=== PATIENT | female | born 1995 ===

== ENCOUNTER 2017-03-30 13:13 | Inpatient (IN) ==
[2017-03-30] MEDS ORDERED: LACTATED RINGERS 1,000 ML IV ONE (14:03)
[2017-03-30] MEDS ORDERED: ONDANSETRON 4 MG/2 ML VIAL IV PRN ×2 (14:03→18:19)
[2017-03-30] MEDS ORDERED: OXYTOCIN 10 UNIT/ML VIAL IM ONE (14:06)
[2017-03-30] MEDS ORDERED: FAMOTIDINE 20 MG/2 ML VIAL IV ONE (14:07)
[2017-03-30] MEDS ORDERED: ceFAZolin 2,000 MG in PREMIX 1 EACH IV ONE (14:07)
[2017-03-30] MEDS ORDERED: CITRIC ACID/SODIUM CITRATE 30 ML UDCUP PO ONE (14:07)
[2017-03-30] MEDS ORDERED: OXYTOCIN/LR 30 UNIT/1,000 ML BAG IV ONE (14:23)
[2017-03-30 14:34] LABS: Basophils % 0.2 % (0.0-0.8); Eosinophils % 0.2 % (0.00-10.9); Hematocrit 38.2 VOL% (35.7-47.0); Hemoglobin 12.8 GM/DL (12.0-16.0); Immature Granulocytes % 0.7 %; Immature Granulocytes Absolute 0.07 #; Lymphocytes # 1.8 10*3/uL (1.4-4.0); Lymphocytes % 18.5 % (21.3-54.2); Mean Corpuscular HGB Conc 33.5 GM/DL (32-36); Mean Corpuscular Hemoglobin 28 PG (27-34); Mean Corpuscular Volume 82.5 FL (87-102); Mean Platelet Volume 11.9 FL (9.6-12.0); Monocytes # 0.5 10*3/uL (0.11-0.8); Monocytes % 4.9 % (1.7-12.7); Neutrophils # 7.2 10*3/uL (1.4-7.4); Neutrophils % 75.5 % (38.7-73.9); Platelet Count 235 T/CUMM (130-400); Red Blood Count 4.63 MC/CUMM (3.8-5.5); Red Cell Distribution Width 14.5 % (9.3-17.3); White Blood Count 9.6 T/CUMM (4-12)
[2017-03-30 14:48] LABS: Apearance,Urine CLEAR (Clear); Bilirubin,Urine Negative (Negative); Blood, Urine Negative (Negative); Glucose,Urine (UA) >=500 mg/dL (Negative); Ketones,Urine 5 mg/dL (Negative); Mucus,Urine Occasional /LPF (Occasional); Nitrite,Urine Negative (Negative); Protein,Urine 100 MG/DL; RBC,Urine 1 /HPF (0-4); Squamous Epithelial Cell,Urine Occasional /HPF (0-10); Urine Color Yellow (Yellow); Urine Specific Gravity 1.022 (1.001-1.035); Urine Urobilinogen < 2.0 EU/DL (0.2-1.0); WBC,Urine 1 /HPF (0-6)
[2017-03-30 15:02] LABS: Alanine Aminotransferase 9 U/L (13-56); Albumin 2.2 G/DL (3.4-5.0); Alkaline Phosphatase 121 U/L (45-117); Aspartate Amino Transferase 10 U/L (0-37); Bilirubin,Total < 0.39 MG/DL (0.2-1.0); Blood Urea Nitrogen 11 MG/DL (7-18); Calcium 8.2 MG/DL (8.5-10.1); Glucose 198 MG/DL (74-106); Potassium 4.1 MMOL/L (3.5-5.1); Sodium 136 MMOL/L (136-145); Total Protein 6.2 G/DL (6.4-8.3)
[2017-03-30] MEDS ORDERED: fentaNYL 100 MCG/2 ML VIAL ONE (16:25)
[2017-03-30] MEDS ORDERED: MORPHINE 10 MG/10 ML VIAL ONE (16:26)
[2017-03-30] MEDS ORDERED: ONDANSETRON 4 MG/2 ML VIAL ONE (16:29)
[2017-03-30 16:32] LABS: Cord Arterial Blood HCO3 27.4 MMOL/L
[2017-03-30 16:38] LABS: Cord Venous Blood HCO3 24.3 MMOL/L; Cord Venous Blood PO2 27.3 MMHG
[2017-03-30] MEDS ORDERED: DEXTROSE 50% 25 GM/50 ML VIAL IV PRN (18:19)
[2017-03-30] MEDS ORDERED: RHO(D) IMMUNE GLOBULIN 300 MCG SYRINGE IM ONE (18:19)
[2017-03-30] MEDS ORDERED: ACETAMINOPHEN 325 MG TABLET PO PRN (18:19)
[2017-03-30] MEDS ORDERED: LACTATED RINGERS 1,000 ML IV SCH (18:19)
[2017-03-30] MEDS ORDERED: OXYTOCIN/LR 20 UNIT/1,000 ML BAG IV ONE (18:19)
[2017-03-30] MEDS ORDERED: GLUCAGON 1 MG VIAL IM PRN (18:19)
[2017-03-30] MEDS: metFORMIN 500 MG TABLET PO SCH (18:45)
[2017-03-30] MEDS: valACYclovir 500 MG TABLET PO SCH (21:10)
[2017-03-30] MEDS: DOCUSATE SODIUM 100 MG CAPSULE PO SCH (21:18)
[2017-03-31 04:44] LABS: Hematocrit 34.9 VOL% (35.7-47.0); Hemoglobin 11.3 GM/DL (12.0-16.0)
[2017-03-31 05:29] LABS: Basophils % 0.4 % (0.0-0.8); Eosinophils % 0.4 % (0.00-10.9); Hematocrit 33.3 VOL% (35.7-47.0); Hemoglobin 11.4 GM/DL (12.0-16.0); Immature Granulocytes % 0.5 %; Immature Granulocytes Absolute 0.05 #; Lymphocytes # 1.8 10*3/uL (1.4-4.0); Lymphocytes % 18.3 % (21.3-54.2); Mean Corpuscular HGB Conc 34.2 GM/DL (32-36); Mean Corpuscular Hemoglobin 28 PG (27-34); Mean Corpuscular Volume 81.4 FL (87-102); Mean Platelet Volume 11.7 FL (9.6-12.0); Monocytes # 0.8 10*3/uL (0.11-0.8); Monocytes % 7.9 % (1.7-12.7); Neutrophils # 7.3 10*3/uL (1.4-7.4); Neutrophils % 72.5 % (38.7-73.9); Platelet Count 192 T/CUMM (130-400); Red Blood Count 4.09 MC/CUMM (3.8-5.5); Red Cell Distribution Width 14.6 % (9.3-17.3)
[2017-03-31] MEDS: DOCUSATE SODIUM 100 MG CAPSULE PO SCH ×2 (08:18→22:11)
[2017-03-31] MEDS: valACYclovir 500 MG TABLET PO SCH ×2 (08:18→22:10)
[2017-03-31] MEDS: MULTIVITAMIN (PRENATAL) TABLET PO SCH (08:18)
[2017-03-31] MEDS: SIMETHICONE CHEW 80 MG TABLET PO PRN (08:19)
[2017-03-31] MEDS: metFORMIN 500 MG TABLET PO SCH ×2 (08:19→16:59)
[2017-03-31] MEDS ORDERED: ceFAZolin 1,000 MG in SYRINGE 1 EACH IV SCH (08:30)
[2017-03-31] MEDS: IBUPROFEN 800 MG TABLET PO PRN (15:32)
[2017-03-31] MEDS: MAGNESIUM HYDROXIDE SUSP 30 ML UDCUP PO PRN (22:10)
[2017-04-01] MEDS: IBUPROFEN 800 MG TABLET PO PRN ×2 (01:12→20:02)
[2017-04-01] MEDS: MAGNESIUM HYDROXIDE SUSP 30 ML UDCUP PO PRN ×2 (08:52→20:03)
[2017-04-01] MEDS: DOCUSATE SODIUM 100 MG CAPSULE PO SCH ×2 (08:55→20:03)
[2017-04-01] MEDS: MULTIVITAMIN (PRENATAL) TABLET PO SCH (08:55)
[2017-04-01] MEDS: valACYclovir 500 MG TABLET PO SCH ×2 (08:55→20:03)
[2017-04-01] MEDS: metFORMIN 500 MG TABLET PO SCH ×2 (08:55→17:39)
[2017-04-01] MEDS ORDERED: INFLUENZA VIRUS VACCINE 0.5 ML SYRINGE IM ONE (09:00)
[2017-04-01] MEDS: SIMETHICONE CHEW 80 MG TABLET PO PRN (20:03)
[2017-04-02] MEDS: DOCUSATE SODIUM 100 MG CAPSULE PO SCH ×2 (09:01→20:40)
[2017-04-02] MEDS: metFORMIN 500 MG TABLET PO SCH ×2 (09:01→17:24)
[2017-04-02] MEDS: MULTIVITAMIN (PRENATAL) TABLET PO SCH (09:03)
[2017-04-02] MEDS: valACYclovir 500 MG TABLET PO SCH ×2 (09:04→20:40)
[2017-04-02] MEDS: IBUPROFEN 800 MG TABLET PO PRN ×2 (11:09→22:05)
[2017-04-03 08:26] VITALS: BP 142/80
[2017-04-03] MEDS: DOCUSATE SODIUM 100 MG CAPSULE PO SCH (08:59)
[2017-04-03] MEDS: MULTIVITAMIN (PRENATAL) TABLET PO SCH (08:59)
[2017-04-03] MEDS: valACYclovir 500 MG TABLET PO SCH (08:59)
[2017-04-03] MEDS: metFORMIN 500 MG TABLET PO SCH (09:00)
[2017-04-03] MEDS: IBUPROFEN 800 MG TABLET PO PRN (10:22)
== END 2017-04-03 13:05 | disposition home or self-care (01) | DRG 540 ==
LOC: N.LDOUT 13:13 → N.LD 13:14 → N.OB 18:16
PROVIDERS: ADMIT Obstetrics & Gynecology; ATTEND Obstetrics & Gynecology
PROC: LDCSECT (ICD-10-PCS; 2017-03-30 14:15)

== ENCOUNTER 2018-06-11 14:24 | Observation (INO) ==
[2018-06-11] MEDS ORDERED: INSULIN NPH 100 UNIT/ML SUBCUT ONE (14:53)
[2018-06-11] MEDS ORDERED: INSULIN REGULAR 100 UNIT/ML SUBCUT ONE ×2 (14:53→20:18)
[2018-06-11] MEDS ORDERED: GLUCAGON 1 MG VIAL IM PRN (14:54)
[2018-06-11] MEDS ORDERED: DEXTROSE 50% 25 GM/50 ML VIAL IV PRN (14:54)
[2018-06-11 15:18] LABS: Eosinophils % 0.2 % (0.00-10.9); Hematocrit 36.3 VOL% (35.7-47.0); Hemoglobin 11.6 GM/DL (12.0-16.0); Immature Granulocytes % 0.5 %; Immature Granulocytes Absolute 0.04 #; Lymphocytes # 1.1 10*3/uL (1.4-4.0); Lymphocytes % 12.5 % (21.3-54.2); Mean Corpuscular Volume 77.4 FL (87-102); Mean Platelet Volume 11.3 FL (9.6-12.0); Monocytes % 4.4 % (1.7-12.7); Neutrophils % 82.4 % (38.7-73.9); Platelet Count 259 T/CUMM (130-400); Red Blood Count 4.69 MC/CUMM (3.8-5.5); Red Cell Distribution Width 14.1 % (9.3-17.3); White Blood Count 8.5 T/CUMM (4-12)
[2018-06-11 15:39] LABS: Alanine Aminotransferase 34 U/L (13-56); Albumin 2.3 G/DL (3.4-5.0); Alkaline Phosphatase 132 U/L (45-117); Aspartate Amino Transferase 94 U/L (0-37); Bilirubin,Total < 0.39 MG/DL (0.2-1.0); Blood Urea Nitrogen 8 MG/DL (7-18); Calcium 8.5 MG/DL (8.5-10.1); Glucose 315 MG/DL (74-106); Osmolality,Calculated 269.8 MOS/KG (273-304); Total Protein 7.5 G/DL (6.4-8.3)
[2018-06-11] MEDS: SODIUM CHLORIDE 0.9% 1,000 ML IV SCH (20:16)
[2018-06-11] MEDS: INSULIN NPH 100 UNIT/ML SUBCUT SCH (20:16)
[2018-06-11] MEDS: INSULIN REGULAR 100 UNIT/ML SUBCUT SCH ×2 (20:28→22:39)
[2018-06-11] MEDS: valACYclovir 500 MG TABLET PO SCH (21:17)
[2018-06-12] MEDS: INSULIN REGULAR 100 UNIT/ML SUBCUT SCH ×7 (00:45→20:15)
[2018-06-12] MEDS: SODIUM CHLORIDE 0.9% 1,000 ML IV SCH (04:21)
[2018-06-12] MEDS: INSULIN NPH 100 UNIT/ML SUBCUT SCH ×2 (08:08→16:37)
[2018-06-12] MEDS: MULTIVITAMIN (PRENATAL) TABLET PO SCH (08:56)
[2018-06-12] MEDS: DOCUSATE SODIUM 100 MG CAPSULE PO PRN ×2 (08:56→20:14)
[2018-06-12] MEDS: valACYclovir 500 MG TABLET PO SCH ×2 (08:57→20:14)
[2018-06-13] MEDS: INSULIN REGULAR 100 UNIT/ML SUBCUT SCH ×6 (00:14→23:47)
[2018-06-13] MEDS: MULTIVITAMIN (PRENATAL) TABLET PO SCH (08:07)
[2018-06-13] MEDS: INSULIN NPH 100 UNIT/ML SUBCUT SCH ×2 (08:07→16:55)
[2018-06-13] MEDS: valACYclovir 500 MG TABLET PO SCH ×2 (08:07→20:21)
[2018-06-13] MEDS: DOCUSATE SODIUM 100 MG CAPSULE PO PRN (08:10)
[2018-06-14] MEDS: INSULIN REGULAR 100 UNIT/ML SUBCUT SCH ×5 (06:12→18:48)
[2018-06-14] MEDS ORDERED: INSULIN REGULAR 100 UNIT/ML SUBCUT SCH (07:30)
[2018-06-14] MEDS ORDERED: INSULIN NPH 100 UNIT/ML SUBCUT SCH (07:30)
[2018-06-14] MEDS ORDERED: INSULIN REGULAR 100 UNIT/ML SUBCUT ONE (09:30)
[2018-06-14] MEDS ORDERED: INSULIN NPH 100 UNIT/ML SUBCUT STA (09:30)
[2018-06-14] MEDS: valACYclovir 500 MG TABLET PO SCH ×2 (09:36→21:22)
[2018-06-14] MEDS: MULTIVITAMIN (PRENATAL) TABLET PO SCH (09:36)
[2018-06-14] MEDS: DOCUSATE SODIUM 100 MG CAPSULE PO PRN (09:36)
[2018-06-14] MEDS: INSULIN NPH 100 UNIT/ML SUBCUT SCH (17:46)
[2018-06-15] MEDS: INSULIN REGULAR 100 UNIT/ML SUBCUT SCH ×4 (06:08→12:10)
[2018-06-15 07:24] VITALS: BP 108/60
[2018-06-15] MEDS: INSULIN NPH 100 UNIT/ML SUBCUT SCH (08:10)
[2018-06-15] MEDS: valACYclovir 500 MG TABLET PO SCH (10:25)
[2018-06-15] MEDS: MULTIVITAMIN (PRENATAL) TABLET PO SCH (10:25)
== END 2018-06-15 13:24 | disposition home or self-care (01) ==
LOC: N.OB 14:24 → N.LDOUT 14:24 → N.LD 14:31 → N.OB 06-12 00:48 → UNDODEPREF 06-21 13:53
PROVIDERS: ADMIT Obstetrics & Gynecology; ATTEND Obstetrics & Gynecology

== ENCOUNTER 2018-07-20 23:14 | Inpatient (IN) ==
[2018-07-21] MEDS ORDERED: ONDANSETRON 4 MG/2 ML VIAL IV PRN ×2 (00:01→02:06)
[2018-07-21] MEDS ORDERED: LACTATED RINGERS 500 ML IV PRN (00:01)
[2018-07-21] MEDS ORDERED: CITRIC ACID/SODIUM CITRATE 30 ML UDCUP PO ONE (00:05)
[2018-07-21] MEDS ORDERED: ceFAZolin 3,000 MG in SYRINGE 1 EACH IV ONE (00:08)
[2018-07-21] MEDS ORDERED: OXYTOCIN 10 UNIT/ML VIAL IM ONE (00:25)
[2018-07-21] MEDS ORDERED: LACTATED RINGERS 1,000 ML IV SCH ×2 (00:30→02:30)
[2018-07-21] MEDS ORDERED: FAMOTIDINE 20 MG/2 ML VIAL IV SCH (00:30)
[2018-07-21] MEDS ORDERED: FAMOTIDINE 20 MG/2 ML VIAL IV ONE (00:30)
[2018-07-21 00:37] LABS: Alanine Aminotransferase 13 U/L (13-56); Albumin 1.9 G/DL (3.4-5.0); Alkaline Phosphatase 143 U/L (45-117); Aspartate Amino Transferase 16 U/L (0-37); Bilirubin,Total < 0.39 MG/DL (0.2-1.0); Blood Urea Nitrogen 7 MG/DL (7-18); Calcium 9.1 MG/DL (8.5-10.1); Glucose 237 MG/DL (74-106); Total Protein 7.4 G/DL (6.4-8.3); Uric Acid 5.5 MG/DL (2.6-6.0)
[2018-07-21] MEDS ORDERED: INSULIN REGULAR 100 UNIT/ML SUBCUT ONE (00:47)
[2018-07-21] MEDS ORDERED: OXYTOCIN/LR 30 UNIT/1,000 ML BAG IV ONE (00:50)
[2018-07-21 00:58] LABS: Basophils % 0.1 % (0.0-0.8); Eosinophils % 0.4 % (0.00-10.9); Hematocrit 38.4 VOL% (35.7-47.0); Immature Granulocytes % 0.9 %; Immature Granulocytes Absolute 0.07 #; Lymphocytes # 1.9 10*3/uL (1.4-4.0); Lymphocytes % 24.1 % (21.3-54.2); Mean Corpuscular HGB Conc 31.3 GM/DL (32-36); Mean Platelet Volume 12.3 FL (9.6-12.0); Monocytes % 5.4 % (1.7-12.7); Neutrophils % 69.1 % (38.7-73.9); Platelet Count 241 T/CUMM (130-400); Red Blood Count 4.99 MC/CUMM (3.8-5.5); Red Cell Distribution Width 15.9 % (9.3-17.3); White Blood Count 7.8 T/CUMM (4-12)
[2018-07-21 01:05] LABS: Apearance,Urine CLEAR (Clear); Bacteria,Urine Occasional /HPF (Few); Bilirubin,Urine Negative (Negative); Blood, Urine Negative (Negative); Glucose,Urine (UA) >=500 mg/dL (Negative); Hyaline Casts,Urine 1 /LPF (0-3); Ketones,Urine Negative (Negative); Nitrite,Urine Negative (Negative); Protein,Urine 100 MG/DL; RBC,Urine 1 /HPF (0-4); Squamous Epithelial Cell,Urine Occasional /HPF (0-10); Urine Color Yellow (Yellow); Urine Specific Gravity 1.028 (1.001-1.035); Urine Urobilinogen < 2.0 EU/DL (0.2-1.0); WBC,Urine 1 /HPF (0-6)
[2018-07-21] MEDS ORDERED: MIDAZOLAM 2 MG/2 ML VIAL ONE (01:54)
[2018-07-21] MEDS ORDERED: fentaNYL 100 MCG/2 ML VIAL ONE (01:54)
[2018-07-21] MEDS ORDERED: PROPOFOL 200 MG/20 ML VIAL IV ONE (01:55)
[2018-07-21] MEDS ORDERED: SUCCINYLCHOLINE 200 MG/10 ML VIAL ONE (01:56)
[2018-07-21] MEDS ORDERED: SEVOFLURANE 1 UNIT/15 MINUTE INH ONE (01:56)
[2018-07-21] MEDS ORDERED: IBUPROFEN 800 MG TABLET PO PRN (02:06)
[2018-07-21] MEDS ORDERED: DEXTROSE 50% 25 GM/50 ML VIAL IV PRN ×2 (02:06→06:07)
[2018-07-21] MEDS ORDERED: SIMETHICONE CHEW 80 MG TABLET PO PRN (02:06)
[2018-07-21] MEDS ORDERED: GLUCAGON 1 MG VIAL IM PRN ×2 (02:06→06:07)
[2018-07-21] MEDS ORDERED: RHO(D) IMMUNE GLOBULIN 300 MCG SYRINGE IM ONE (02:06)
[2018-07-21] MEDS ORDERED: MAGNESIUM HYDROXIDE SUSP 30 ML UDCUP PO PRN (02:06)
[2018-07-21] MEDS ORDERED: ACETAMINOPHEN 325 MG TABLET PO PRN (02:06)
[2018-07-21] MEDS ORDERED: OXYTOCIN/LR 20 UNIT/1,000 ML BAG IV ONE (02:06)
[2018-07-21] MEDS ORDERED: MEPERIDINE 25 MG/1 ML VIAL IV ONE (02:12)
[2018-07-21] MEDS ORDERED: MEPERIDINE 25 MG/1 ML VIAL ONE ×2 (02:15→02:16)
[2018-07-21] MEDS ORDERED: MEPERIDINE 25 MG/1 ML VIAL IV PRN (07:48)
[2018-07-21] MEDS ORDERED: hydrALAZINE 20 MG/1 ML VIAL IV ONE ×2 (08:10→08:25)
[2018-07-21 08:49] LABS: Basophils % 0.1 % (0.0-0.8); Eosinophils % 0.1 % (0.00-10.9); Hematocrit 34.9 VOL% (35.7-47.0); Hemoglobin 10.9 GM/DL (12.0-16.0); Immature Granulocytes % 0.4 %; Immature Granulocytes Absolute 0.04 #; Lymphocytes # 2.2 10*3/uL (1.4-4.0); Lymphocytes % 20.1 % (21.3-54.2); Mean Corpuscular HGB Conc 31.2 GM/DL (32-36); Mean Corpuscular Volume 77.4 FL (87-102); Mean Platelet Volume 11.9 FL (9.6-12.0); Monocytes % 5.4 % (1.7-12.7); Neutrophils % 73.9 % (38.7-73.9); Platelet Count 227 T/CUMM (130-400); Red Blood Count 4.51 MC/CUMM (3.8-5.5); Red Cell Distribution Width 15.8 % (9.3-17.3); White Blood Count 10.9 T/CUMM (4-12)
[2018-07-21] MEDS: ceFAZolin 1,000 MG in SYRINGE 1 EACH IV SCH ×2 (09:35→17:01)
[2018-07-21] MEDS ORDERED: LORazepam 1 MG TABLET PO PRN (09:59)
[2018-07-21] MEDS: DOCUSATE SODIUM 100 MG CAPSULE PO SCH ×2 (10:00→21:10)
[2018-07-21] MEDS: MULTIVITAMIN (PRENATAL) TABLET PO SCH (10:00)
[2018-07-21] MEDS: SERTRALINE 50 MG TABLET PO SCH (11:21)
[2018-07-21] MEDS: INSULIN REGULAR 100 UNIT/ML SUBCUT SCH ×2 (11:52→17:01)
[2018-07-22] MEDS: INSULIN REGULAR 100 UNIT/ML SUBCUT SCH ×2 (00:19→06:10)
[2018-07-22 07:28] VITALS: BP 151/89
[2018-07-22] MEDS ORDERED: METOCLOPRAMIDE 10 MG TABLET ONE (07:59)
[2018-07-22] MEDS: DOCUSATE SODIUM 100 MG CAPSULE PO SCH (08:03)
[2018-07-22] MEDS: MULTIVITAMIN (PRENATAL) TABLET PO SCH (08:03)
[2018-07-22] MEDS: SERTRALINE 50 MG TABLET PO SCH (08:03)
[2018-07-22] MEDS ORDERED: METOCLOPRAMIDE 10 MG TABLET PO SCH (09:00)
== END 2018-07-22 13:20 | disposition home or self-care (01) | DRG 540 ==
LOC: N.LDOUT 23:14 → N.LD 23:16 → N.OB 07-21 00:02
PROVIDERS: ADMIT Obstetrics & Gynecology; ATTEND Obstetrics & Gynecology
PROC: LDCSECT (ICD-10-PCS; 2018-07-21 00:45)

== ENCOUNTER 2020-11-13 10:11 | Inpatient (IN) ==
[2020-11-13] MEDS ORDERED: CITRIC ACID/SODIUM CITRATE 30 ML UDCUP PO ONE (10:27)
[2020-11-13] MEDS ORDERED: ceFAZolin 2,000 MG/50 ML DUPLEX IV ONE (10:27)
[2020-11-13] MEDS ORDERED: FAMOTIDINE 20 MG/2 ML VIAL IV ONE (10:27)
[2020-11-13] MEDS: LACTATED RINGERS 1,000 ML IV SCH ×2 (10:46→15:08)
[2020-11-13 11:00] LABS: Basophils % 0.6 % (0.0-0.8); Eosinophils % 0.2 % (0.00-10.9); Hematocrit 38.5 VOL% (35.7-47.0); Hemoglobin 12.7 GM/DL (12.0-16.0); Immature Granulocytes % 0.2 %; Immature Granulocytes Absolute 0.01 #; Lymphocytes # 2.6 10*3/uL (1.4-4.0); Mean Corpuscular Volume 80.7 FL (87-102); Mean Platelet Volume 11.7 FL (9.6-12.0); Monocytes % 4.4 % (1.7-12.7); Neutrophils % 44.6 % (38.7-73.9); Platelet Count 184 T/CUMM (130-400); Red Blood Count 4.77 MC/CUMM (3.8-5.5); Red Cell Distribution Width 13.1 % (9.3-17.3); White Blood Count 5.2 T/CUMM (4-12)
[2020-11-13 11:32] LABS: Albumin 2.1 G/DL (3.4-5.0); Bilirubin,Total 0.6 MG/DL (0.20-1.00); Potassium 3.7 MMOL/L (3.5-5.1); Total Protein 7.1 G/DL (6.4-8.2)
[2020-11-13 12:08] LABS: Anisocytosis Slight; Band Neutrophils 3 % (0-10); Lymphocytes 52 % (20-55); Segmented Neutrophils 40 % (50-85); Total Cells Counted 100
[2020-11-13 12:09] LABS: Atypical Lymphocytes Few
[2020-11-13] MEDS ORDERED: OXYTOCIN 10 UNIT/ML VIAL IM ONE (13:00)
[2020-11-13] MEDS ORDERED: OXYTOCIN/LR 30 UNIT/1,000 ML BAG IV ONE (13:00)
[2020-11-13] MEDS ORDERED: BUPIVACAINE SPINAL 0.75% 2 ML AMP SPINAL ONE (13:15)
[2020-11-13] MEDS ORDERED: ONDANSETRON 4 MG/2 ML VIAL ONE (13:15)
[2020-11-13 14:04] LABS: Platelet Estimate Normal
[2020-11-13] MEDS ORDERED: miSOPROStoL 200 MCG TABLET ONE (14:10)
[2020-11-13] MEDS ORDERED: METHYLERGONOVINE 0.2 MG/1 ML AMP ONE (14:10)
[2020-11-13] MEDS ORDERED: ACETAMINOPHEN INJ 1,000 MG/100 ML VIAL IV ONE (16:15)
[2020-11-13] MEDS ORDERED: LACTATED RINGERS 1,000 ML IV ONE (16:15)
[2020-11-13] MEDS ORDERED: PHENYLEPHRINE 1 MG/10 ML SYRINGE IV ONE (16:15)
[2020-11-13] MEDS ORDERED: KETOROLAC 30 MG/1 ML VIAL ONE (16:17)
[2020-11-13 16:24] LABS: Cord Venous Blood HCO3 20.7 MMOL/L; Cord Venous Blood PCO2 71.8 MMHG; Cord Venous Blood PO2 < 17
[2020-11-13 16:26] LABS: Cord Arterial Blood HCO3 21.2 MMOL/L
[2020-11-13 16:43] LABS: Bilirubin,Urine Negative (Negative); Blood, Urine Negative (Negative); Glucose,Urine (UA) Negative (Negative); Hyaline Casts,Urine 2 /LPF (0-3); Ketones,Urine 80 mg/dL (Negative); Mucus,Urine Many /LPF (Occasional); Nitrite,Urine Negative (Negative); Protein,Urine >=500 MG/DL; RBC,Urine 1 /HPF (0-4); Squamous Epithelial Cell,Urine Occasional /HPF (0-10); Urine Appearance CLEAR (Clear); Urine Color Amber (Yellow); Urine Specific Gravity 1.029 (1.001-1.035)
[2020-11-13] MEDS ORDERED: MAGNESIUM HYDROXIDE SUSP 30 ML UDCUP PO PRN (16:58)
[2020-11-13] MEDS ORDERED: SIMETHICONE CHEW 80 MG TABLET PO PRN (16:58)
[2020-11-13] MEDS ORDERED: ACETAMINOPHEN 325 MG TABLET PO PRN (16:58)
[2020-11-13] MEDS ORDERED: ONDANSETRON 4 MG/2 ML VIAL IV PRN (16:58)
[2020-11-13] MEDS ORDERED: DEXTROSE 50% 25 GM/50 ML VIAL IV PRN (16:58)
[2020-11-13] MEDS ORDERED: RHO(D) IMMUNE GLOBULIN 300 MCG SYRINGE IM ONE (16:58)
[2020-11-13] MEDS ORDERED: OXYTOCIN/LR 20 UNIT/1,000 ML BAG IV ONE (16:58)
[2020-11-13] MEDS ORDERED: GLUCAGON 1 MG VIAL IM PRN (16:58)
[2020-11-13] MEDS ORDERED: NIFEdipine 10 MG CAPSULE PO ONE (18:34)
[2020-11-13] MEDS: DOCUSATE SODIUM 100 MG CAPSULE PO SCH (21:00)
[2020-11-13] MEDS: KETOROLAC 30 MG/1 ML VIAL IV SCH (22:58)
[2020-11-13] MEDS: ACETAMINOPHEN 500 MG TABLET PO SCH (23:01)
[2020-11-14] MEDS ORDERED: INSULIN REGULAR 100 UNIT/ML SUBCUT SCH
[2020-11-14 01:14] LABS: Hemoglobin 11.4 GM/DL (12.0-16.0)
[2020-11-14] MEDS: LACTATED RINGERS 1,000 ML IV SCH ×3 (02:56→17:04)
[2020-11-14] MEDS: ACETAMINOPHEN 500 MG TABLET PO SCH ×2 (04:45→11:33)
[2020-11-14] MEDS: KETOROLAC 30 MG/1 ML VIAL IV SCH ×3 (04:46→17:05)
[2020-11-14 06:27] LABS: Basophils % 0.4 % (0.0-0.8); Hemoglobin 10.3 GM/DL (12.0-16.0); Immature Granulocytes % 0.4 %; Immature Granulocytes Absolute 0.02 #; Lymphocytes # 2.5 10*3/uL (1.4-4.0); Lymphocytes % 45.3 % (21.3-54.2); Mean Corpuscular HGB Conc 33.2 GM/DL (32-36); Mean Corpuscular Volume 80.9 FL (87-102); Mean Platelet Volume 11.9 FL (9.6-12.0); Monocytes % 5.6 % (1.7-12.7); Neutrophils % 48.3 % (38.7-73.9); Platelet Count 152 T/CUMM (130-400); Red Blood Count 3.83 MC/CUMM (3.8-5.5); Red Cell Distribution Width 12.9 % (9.3-17.3); White Blood Count 5.5 T/CUMM (4-12)
[2020-11-14] MEDS: DOCUSATE SODIUM 100 MG CAPSULE PO SCH ×2 (09:22→20:47)
[2020-11-14] MEDS: MULTIVITAMIN (PRENATAL) TABLET PO SCH (09:22)
[2020-11-14] MEDS: INSULIN REGULAR 100 UNIT/ML SUBCUT SCH ×4 (11:25→20:48)
[2020-11-14] MEDS: IBUPROFEN 800 MG TABLET PO PRN ×2 (11:33→23:37)
[2020-11-14] MEDS ORDERED: DEXTROSE 50% 25 GM/50 ML VIAL IV PRN (12:20)
[2020-11-14] MEDS: METOCLOPRAMIDE 10 MG TABLET PO SCH (20:40)
[2020-11-15] MEDS: METOCLOPRAMIDE 10 MG TABLET PO SCH (04:03)
[2020-11-15] MEDS: MULTIVITAMIN (PRENATAL) TABLET PO SCH (09:42)
[2020-11-15] MEDS: DOCUSATE SODIUM 100 MG CAPSULE PO SCH (09:43)
[2020-11-15] MEDS: INSULIN REGULAR 100 UNIT/ML SUBCUT SCH (11:47)
[2020-11-15 11:52] VITALS: BP 131/81
== END 2020-11-15 15:00 | disposition home or self-care (01) | DRG 786 ==
LOC: N.LD 10:11 → N.OB 23:40
PROVIDERS: ADMIT Obstetrics & Gynecology; ATTEND Obstetrics & Gynecology
PROC: LDCSECT (ICD-10-PCS; 2020-11-13 15:00)